=== PATIENT | female | born 1965 | race Caucasian/White ===

== ENCOUNTER → 2020-10-03 | Outpatient (CLI) | payer BC ==
[~2020-10-03] MED LIST: ASPIRIN EC325 MG PO; DEXAMETHASONE6 MG PO; PEPCID20 MG PO; ZOFRAN ODT 4 MG4 MG PO; ZOFRAN ODT 4 MG4 MG SL
== END ==
LOC: CT 10:09
DX: C54.1 Malignant neoplasm of endometrium (principal); N28.9 Disorder of kidney and ureter, unspecified
CPT/HCPCS: 71260; Q9967

== ENCOUNTER → 2021-09-26 | Outpatient (CLI) | payer BC ==
[2021-09-26 08:20] LABS: RED BLOOD COUNT 4.56 M/UL (4.00-5.10); WHITE BLOOD COUNT 8.5 K/UL (4.5-11.0)
[2021-09-27 07:10] LABS: A/G RATIO 1.3 (1.2-2.2); ALKALINE PHOSPHATASE, S 118 IU/L (44-121); ALT (SGPT) 19 IU/L (0-32); AST (SGOT) 17 IU/L (0-40); BILIRUBIN, TOTAL 0.2 mg/dL (0.0-1.2); BUN 25 mg/dL (6-24); BUN/CREATININE RATIO 28 (9-23); CALCIUM, SERUM 9.2 mg/dL (8.7-10.2); CARBON DIOXIDE, TOTAL 21 mmol/L (20-29); CHLORIDE, SERUM 105 mmol/L (96-106); CHOLESTEROL, TOTAL 182 mg/dL (100-199); EGFR IF AFRICN AM 82 (>59); EGFR IF NONAFRICN AM 71 (>59); GLOBULIN, TOTAL 3.2 g/dL (1.5-4.5); GLUCOSE, SERUM 100 mg/dL (65-99); HDL CHOLESTEROL 57 mg/dL (>39); LDL CHOLESTEROL CALC 111 mg/dL (0-99); LDL/HDL RATIO 1.9 ratio (0.0-3.2); POTASSIUM, SERUM 4.8 mmol/L (3.5-5.2); PROTEIN, TOTAL, SERUM 7.3 g/dL (6.0-8.5); SODIUM, SERUM 142 mmol/L (134-144); T. CHOL/HDL RATIO 3.2 ratio (0.0-4.4); TRIGLYCERIDES 76 mg/dL (0-149)
== END ==
LOC: LAB 07:37
PROVIDERS: Physician Assistant
DX: R55 Syncope and collapse (principal); R00.2 Palpitations; R00.0 Tachycardia, unspecified; I49.3 Ventricular premature depolarization
CPT/HCPCS: 36415; 80053; 80061; 83735; 84439; 84443; 84481; 85025

== ENCOUNTER → 2021-10-09 | Outpatient (CLI) | payer BC | LOC: HEART 5 08:00 | DX: R55 Syncope and collapse (principal); R00.2 Palpitations; I49.3 Ventricular premature depolarization | CPT/HCPCS: 93306 ==

== ENCOUNTER → 2021-11-20 | Outpatient (CLI) | payer BC | LOC: HEART 5 11:00 | DX: I49.3 Ventricular premature depolarization (principal); R00.2 Palpitations ==

== ENCOUNTER → 2022-06-13 | Outpatient (CLI) | payer BC ==
[2022-06-13 16:20] LABS: BUN/CREATININE RATIO 36 (0-10)
[2022-06-13 16:22] LABS: HEMOGLOBIN 12.1 gm/dl (12.3-15.3); RED BLOOD COUNT 4.77 M/UL (4.00-5.10); WHITE BLOOD COUNT 7.5 K/UL (4.5-11.0)
== END ==
LOC: LAB 14:54
PROVIDERS: Family Medicine
DX: E55.9 Vitamin D deficiency, unspecified (principal)
CPT/HCPCS: 36415; 80053; 85025

== ENCOUNTER → 2022-06-18 | Outpatient (CLI) | payer BC | LOC: EXRD 08:30 | DX: N95.1 Menopausal and female climacteric states (principal) | CPT/HCPCS: 77080 ==